=== PATIENT | female | born 1995 | race Caucasian/White ===

== ENCOUNTER 2020-01-04 11:14 | Emergency (ER) | payer SELFPAY ==
[2020-01-04 11:37] VITALS: BP 112/50; PULSE 86; RESP 16; TEMP 36.9; O2SAT 100
--- NOTE | 2020-01-04 12:05 | ED.GENADULT ---
HPI - General Adult General Chief complaint: Upper Respiratory Infection Stated complaint: Vomiting/Cough Time Seen by Provider: 01/04/20 12:05 Source: patient Mode of arrival: ambulatory Limitations: no limitations History of Present Illness HPI narrative: 24-year-old female patient presents to the [facility] with complaints of nausea and vomiting for the past 3-day. Patient states that she started having 100 fever yesterday. Slight cough and little bit of a runny nose. Patient states that her last period was November 20. Patient does currently have a 5-month-old baby at home. Patient states that she did receive a flu shot this year. Related Data Allergies Allergy/AdvReac Type Severity Reaction Status Date / Time acetaminophen Allergy Unknown Rash Verified 01/04/20 11:47 amoxicillin Allergy Unknown Rash Verified 01/04/20 11:47 azithromycin Allergy Unknown Rash Verified 01/04/20 11:47 clavulanic acid Allergy Unknown Rash Verified 01/04/20 11:47 dextromethorphan Allergy Unknown Rash Verified 01/04/20 11:47 doxylamine Allergy Unknown Rash Verified 01/04/20 11:47 ibuprofen Allergy Unknown Other Verified 01/04/20 11:47 metoclopramide Allergy Unknown Rash Verified 01/04/20 11:47 morphine Allergy Unknown Rash Verified 01/04/20 11:47 pseudoephedrine Allergy Unknown Rash Verified 01/04/20 11:47 Review of Systems Review of Systems: Narrative: CONSTITUTIONAL: Positive subjective low-grade fever, denies chills, or sweats. EYES: Denies visual changes, redness, or discharge. ENT: Positive rhinorrhea, congestion, denies sore throat, or otalgia. CARDIOVASCULAR: Denies chest pain, palpitations, or edema. RESPIRATORY: Denies cough or dyspnea. GASTROINTESTINAL: Denies abdominal pain, positive nausea, vomiting, denies diarrhea. GENITOURINARY: Denies dysuria or hematuria. SKIN: Denies rash or itching. MUSCULOSKELETAL: Denies back pain, joint pain, or myalgia. NEUROLOGIC: Denies headache, numbness, or weakness. PSYCHIATRIC: Denies anxiety or depression. PMFSH Comments At the time of my signature I agree with nursing past medical history, surgical, social, and family history. There is no relevant family history pertinent to the presenting complaint. Exam Narrative: Exam Narrative: GENERAL: Well-appearing, well-nourished, and in no acute distress. HEAD: Normocephalic, atraumatic. EYES: PERRLA and EOMI. ENT: Nares clear, no rhinorrhea or epistaxis. Mucous membranes moist. Bilateral TMs are clear with no erythema or foreign bodies in the canal. Posterior pharynx with no erythema, tonsil enlargement, exudates or lesions present. NECK: Supple. No lymphadenopathy CHEST: Clear to auscultation. No respiratory distress. HEART: Regular rate and rhythm. No murmur heard. Normal peripheral pulses. ABDOMEN: Soft, nontender, nondistended, normal active bowel sounds. EXTREMITIES: Normal range of motion. No edema. SKIN: Warm, dry, no rash. NEURO: No focal deficits. Alert and oriented x3. Course Vital Signs Vital signs: Vital Signs Temperature 36.9 C 01/04/20 11:37 Pulse Rate 86 01/04/20 11:37 Respiratory Rate 16 01/04/20 11:37 Blood Pressure 112/50 L 01/04/20 11:37 Pulse Oximetry 100 01/04/20 11:37 Temperature 36.9 C 01/04/20 11:37 Pulse Rate 86 01/04/20 11:37 Respiratory Rate 16 01/04/20 11:37 Blood Pressure 112/50 L 01/04/20 11:37 Pulse Oximetry 100 01/04/20 11:37 Vital signs reviewed. Medical Decision Making Differential Diagnosis Differential Diagnosis: Differential diagnosis: Appendicitis, ovarian torsion, gallbladder disease, ovarian torsion, pancreatitis, lower lobe pneumonia,AAA, AMI or ACS, DKA, diverticulitis. Notify patient that her bedside test today is positive. Discussed with patient that our plan of care is to go ahead and discharge her home with some medications for the nausea vomiting and that she needs to make an appointment with her OB for further evaluation and treatment of the positive
--- NOTE | 2020-01-04 14:50 | PC.NURSE ---
NO UC ORDERED PER COLIN
== END 2020-01-04 12:18 | disposition home or self-care (01) ==
PROVIDERS: Emergency Provider Nurse Practitioner Family
DX: O21.9 Vomiting of pregnancy, unspecified (principal); O99.519 Diseases of the respiratory system complicating pregnancy, unspecified trimester; J06.9 Acute upper respiratory infection, unspecified; O99.619 Diseases of the digestive system complicating pregnancy, unspecified trimester; K21.9 Gastro-esophageal reflux disease without esophagitis; Z3A.00 Weeks of gestation of pregnancy not specified
CPT/HCPCS: 81025; 99213; G0463

== ENCOUNTER 2020-01-19 19:14 | Emergency (ER) | payer SELFPAY ==
[2020-01-19 19:17] VITALS: BP 120/67; PULSE 101; RESP 18; TEMP 37.2; O2SAT 100
--- NOTE | 2020-01-19 19:43 | ED.GENADULT ---
HPI - General Adult General Chief complaint: Eye Problems Stated complaint: Poss [place] [facility] Time Seen by Provider: 01/19/20 19:43 Source: patient and RN notes reviewed Mode of arrival: ambulatory Limitations: no limitations History of Present Illness HPI narrative: 24-year-old 8 weeks and 5 days gestation female presents with complaints of left eye redness, irritation, and itching for 30-40 minutes. Slightly matted. Angeles says her child started with eye redness and irritation initially and now she has developed similar symptoms. No pain. No copious drainage. Exacerbating factors is opening eye. Relieving factors is closing eyes. Suppose to wear glasses but don't wear them. No blurred vision, double vision, sensation of foreign body, or pain of eye with movement. Angeles is 2 months and 5 days . Some parts of this dictation were generated by voice recognition software and may contain typographical and/or grammatical inaccuracies. Related Data Home Medications Medication Instructions Recorded Confirmed Vitamins 01/19/20 Allergies Allergy/AdvReac Type Severity Reaction Status Date / Time acetaminophen Allergy Unknown Rash Verified 01/19/20 19:26 amoxicillin Allergy Unknown Rash Verified 01/19/20 19:26 azithromycin Allergy Unknown Rash Verified 01/19/20 19:26 clavulanic acid Allergy Unknown Rash Verified 01/19/20 19:26 dextromethorphan Allergy Unknown Rash Verified 01/19/20 19:26 doxylamine Allergy Unknown Rash Verified 01/19/20 19:26 ibuprofen Allergy Unknown Other Verified 01/19/20 19:26 metoclopramide Allergy Unknown Rash Verified 01/19/20 19:26 morphine Allergy Unknown Rash Verified 01/19/20 19:26 pseudoephedrine Allergy Unknown Rash Verified 01/19/20 19:26 Review of Systems Review of Systems: Narrative: CONSTITUTIONAL: Denies fever, chills, sweats. EYES: Denies visual changes. Complains of LT eye redness, itching, and irritation. ENT: Complains of rhinorrhea, congestion. Denies sore throat, otalgia. CARDIOVASCULAR: Denies chest pain, palpitations, edema. RESPIRATORY: Denies dyspnea, wheezing, cough. GASTROINTESTINAL: Denies abdominal pain, nausea, vomiting, diarrhea. GENITOURINARY: Denies dysuria, hematuria, abnormal discharge. SKIN: Denies rash or itching. MUSCULOSKELETAL: Denies acute back pain, joint pain, or myalgia. NEUROLOGIC: Denies numbness or focal weakness. PSYCHIATRIC: Denies anxiety or depression. All systems reviewed & are unremarkable except as noted in HPI and below. PMFSH Past Medical History Medical History (Updated 01/27/20 @ 22:14 by LAWANDA Kinney) ADHD (attention deficit hyperactivity disorder) Anxiety Asthma delivery delivered Depression History of gastroesophageal reflux (GERD) Left elbow fracture Surgical History Surgical History (Updated 01/19/20 @ 19:57 by LAWANDA Kinney) H/O section History of elbow surgery For surgery due to fractured that included the growth bone History of endoscopy Family History Family History (Updated 01/19/20 @ 19:58 by LAWANDA Kinney) Father Asthma Grandparent Diabetes mellitus Social History Social History (Updated 01/19/20 @ 19:59 by LAWANDA Kinney) Smoking status: Former smoker Second hand tobacco smoke exposure: Yes Additional smoking assessment comments: Recently stop smoking January 03 due to being Alcohol intake: never Substance use: current Substance use type: marijuana Living arrangements: with family Occupation/Education: occupation Gender identity (if verbalized by the patient): Female Comments At time of signature, agree with nurse past medical, surgical, social, and family history. There is no relevant family history pertinent to the presenting complaint. Exam Narrative: Exam Narrative: GENERAL: This is a well-nourished, well-developed patient, in no apparent distress. HEAD: normocephalic, atraumatic. EYES: PE
[2020-01-19 20:10] VITALS: PULSE 96
== END 2020-01-19 20:10 | disposition home or self-care (01) ==
PROVIDERS: Emergency Provider Nurse Practitioner Family
DX: O99.89 Other specified diseases and conditions complicating pregnancy, childbirth and the puerperium (principal); H10.32 Unspecified acute conjunctivitis, left eye; Z87.891 Personal history of nicotine dependence; Z3A.00 Weeks of gestation of pregnancy not specified
CPT/HCPCS: 99213; G0463

== ENCOUNTER 2022-01-12 10:48 | Emergency (ER) | payer OTHER, SELFPAY ==
[2022-01-12 10:54] VITALS: BP 142/86; PULSE 93; RESP 16; TEMP 37.2; O2SAT 100
--- NOTE | 2022-01-12 11:01 | ED.GENADULT ---
HPI - General Adult General Chief complaint: Nausea/Vomiting/Diarrhea Stated complaint: Vomiting Time Seen by Provider: 01/12/22 11:01 Source: patient Mode of arrival: ambulatory Limitations: no limitations History of Present Illness HPI narrative: 26 yo F presents with c/o N/V, fatigue, indigestion for 2 to 3 days. afebrile. No ABD pain or diarrhea. hx of indigestion. Has not taken OTC antacids. States LMP 12/05. Takes control daily. is concerned she may be . Also stating that she needs work note. pt is well appearing. All systems reviewed and negative except as noted above. Related Data Home Medications Medication Instructions Recorded Confirmed norethindrone-e.estradiol-iron 1 tablet PO DAILY 01/12/22 01/12/22 [Miranda Fe 11/21 (28)] Allergies Allergy/AdvReac Type Severity Reaction Status Date / Time acetaminophen Allergy Unknown Rash Verified 01/12/22 11:01 amoxicillin Allergy Unknown Rash Verified 01/12/22 11:01 azithromycin Allergy Unknown Rash Verified 01/12/22 11:01 clavulanic acid Allergy Unknown Rash Verified 01/12/22 11:01 dextromethorphan Allergy Unknown Rash Verified 01/12/22 11:01 doxylamine Allergy Unknown Rash Verified 01/12/22 11:01 ibuprofen Allergy Unknown Other Verified 01/12/22 11:01 metoclopramide Allergy Unknown Rash Verified 01/12/22 11:01 morphine Allergy Unknown Rash Verified 01/12/22 11:01 pseudoephedrine Allergy Unknown Rash Verified 01/12/22 11:01 Review of Systems Review of Systems: CONSTITUTIONAL: Denies fever, chills, or sweats. Reports fatigue. EYES: Denies visual changes, redness, or discharge. ENT: Denies rhinorrhea, congestion, sore throat, or otalgia. CARDIOVASCULAR: Denies chest pain, palpitations, or edema. RESPIRATORY: Denies cough or dyspnea. GASTROINTESTINAL: Denies abdominal pain. Reports nausea, vomiting. Denies diarrhea. GENITOURINARY: Denies dysuria or hematuria. SKIN: Denies rash or itching. MUSCULOSKELETAL: Denies back pain, joint pain, or myalgia. NEUROLOGIC: Denies headache, numbness, or weakness. PSYCHIATRIC: Denies anxiety or depression. All other systems reviewed are negative, except as documented in HPI. [facility] Past Medical History Medical History (Updated 01/12/22 @ 11:11 by Lachelle Scott NP) ADHD (attention deficit hyperactivity disorder) Anxiety Asthma delivery delivered Depression History of gastroesophageal reflux (GERD) Left elbow fracture Surgical History Surgical History (Updated 01/19/20 @ 19:57 by LAWANDA Kinney) H/O section History of elbow surgery For surgery due to fractured that included the growth bone History of endoscopy Family History Family History (Updated 01/19/20 @ 19:58 by LAWANDA Kinney) Father Asthma Grandparent Diabetes mellitus Social History Social History (Updated 01/19/20 @ 19:59 by LAWANDA Kinney) Smoking status: Former smoker Second hand tobacco smoke exposure: Yes Additional smoking assessment comments: Recently stop smoking January 03 due to being Alcohol intake: never Substance use: current Substance use type: marijuana Gender identity (if verbalized by the patient): Female Comments At time of signature, agree with nursing past medical, surgical, social and family history. There is no relevant family history pertinent to the presenting complaint. Exam Narrative: GENERAL: This is a well-nourished, well-developed patient, in no apparent distress. HEAD: normocephalic, atraumatic. EYES: PERRL. Sclera clear/white. Vision is grossly intact. EARS: External ears normal, auditory canals clear and without drainage, TMs normal without perforation. Hearing grossly intact. NOSE: External nose normal with no obvious nasal discharge, nares without redness, no rhinorrhea. THROAT: Mucous membranes moist, posterior pharynx clear. NECK: Neck supple, non-tender without lymphadenopathy, masses or thyromegaly. CARDIOVASCULAR: Regular ra
[2022-01-12 11:02] VITALS: BP 142/86; PULSE 93; RESP 16; TEMP 37.2; O2SAT 100
== END 2022-01-12 11:14 | disposition home or self-care (01) ==
PROVIDERS: Emergency Provider Nurse Practitioner Family
DX: A08.4 Viral intestinal infection, unspecified (principal); Z87.891 Personal history of nicotine dependence; J45.909 Unspecified asthma, uncomplicated; K21.9 Gastro-esophageal reflux disease without esophagitis
CPT/HCPCS: 81025; 99213; G0463

== ENCOUNTER 2022-03-11 10:52 | Emergency (ER) | payer OTHER, SELFPAY ==
[2022-03-11 11:11] VITALS: BP 120/79; PULSE 92; RESP 16; TEMP 36.3; O2SAT 99
--- NOTE | 2022-03-11 11:15 | ED.URI ---
HPI - URI/Sore Throat General Chief Complaint: Upper Respiratory Infection Stated Complaint: Sore Throat Time Seen by Provider: 03/11/22 11:15 Source: patient, RN notes reviewed and old records reviewed Mode of arrival: ambulatory Limitations: no limitations History of Present Illness HPI Narrative: 26 year old female presents to [facility] with complaints of sore throat, congestion, and cough which started last evening. Patient states family member also is ill with same symptoms. Patient has not taken any medications for her discomfort. Patient denies any acute shortness of breath or any noted wheezing does have a history of asthma. Patient reports it does hurt to swallow rates her pain 5/10 described as constant soreness. MD elicited complaint: cough, sore throat and other (congestion) Pertinent past history: asthma Pain scale (0-10): 5 Exacerbating factors: swallowing Context: sick contacts Associated symptoms: sore throat, cough and other (congestion) Treatments prior to arrival: none Related Data Home Medications Medication Instructions Recorded Confirmed norethindrone-e.estradiol-iron 1 tablet PO DAILY 01/12/22 03/11/22 [Miranda Fe 11/21 (28)] Allergies Allergy/AdvReac Type Severity Reaction Status Date / Time acetaminophen Allergy Unknown Rash Verified 03/11/22 11:22 azithromycin Allergy Unknown Rash Verified 03/11/22 11:22 clavulanic acid Allergy Unknown Rash Verified 03/11/22 11:22 dextromethorphan Allergy Unknown Rash Verified 03/11/22 11:22 doxylamine Allergy Unknown Rash Verified 03/11/22 11:22 ibuprofen Allergy Unknown Other Verified 03/11/22 11:22 metoclopramide Allergy Unknown Rash Verified 03/11/22 11:22 morphine Allergy Unknown Rash Verified 03/11/22 11:22 pseudoephedrine Allergy Unknown Rash Verified 03/11/22 11:22 Review of Systems Review of Systems: CONSTITUTIONAL: Denies fever, chills, or sweats. EYES: Denies visual changes, redness, or discharge. ENT: Denies rhinorrhea, congestion, positive for sore throat, no otalgia. CARDIOVASCULAR: Denies chest pain, palpitations, or edema. RESPIRATORY: Positive for cough and chest congestion denies dyspnea. GASTROINTESTINAL: Denies abdominal pain, nausea, vomiting, or diarrhea. GENITOURINARY: Denies dysuria or hematuria. SKIN: Denies rash or itching. MUSCULOSKELETAL: Denies back pain, joint pain, or myalgia. NEUROLOGIC: Denies headache, numbness, or weakness. PSYCHIATRIC: Positive for anxiety or depression. All systems reviewed & are unremarkable except as noted in HPI and below PMFSH Past Medical History Medical History ADHD (attention deficit hyperactivity disorder) Anxiety Asthma delivery delivered Depression History of gastroesophageal reflux (GERD) Left elbow fracture Surgical History Surgical History H/O section History of elbow surgery For surgery due to fractured that included the growth bone History of endoscopy Family History Family History Father Asthma Grandparent Diabetes mellitus Social History Social History Smoking status: Former smoker Second hand tobacco smoke exposure: Yes Additional smoking assessment comments: Recently stop smoking January 03 due to being Alcohol intake: never Substance use: current Substance use type: marijuana Gender identity (if verbalized by the patient): Female Comments At time of signature, agree with nursing past medical, surgical, social and family history. There is no relevant family history pertinent to the presenting complaint Exam Narrative: GENERAL: Well-appearing, well-nourished, and in no acute distress. HEAD: Normocephalic, atraumatic. EYES: PERRLA and EOMI. ENT: Nares clear, no rhinorrhea or epistaxis. Mucous membranes moist.T
== END 2022-03-11 11:55 | disposition home or self-care (01) ==
PROVIDERS: Emergency Provider Registered Nurse
DX: J02.0 Streptococcal pharyngitis (principal); Z87.891 Personal history of nicotine dependence
CPT/HCPCS: 87880; 99213; G0463

== ENCOUNTER 2022-08-04 18:56 | Emergency (ER) | payer OTHER, SELFPAY ==
[2022-08-04 19:00] VITALS: BP 116/99; PULSE 93; RESP 16; TEMP 36.9; O2SAT 100
[2022-08-04 19:07] VITALS: BP 116/99; PULSE 93; RESP 16; TEMP 36.9; O2SAT 100
--- NOTE | 2022-08-04 19:07 | ED.GENADULT ---
HPI - General Adult General Chief complaint: Ear Stated complaint: Nose Injury Time Seen by Provider: 08/04/22 19:07 Source: patient Mode of arrival: ambulatory Limitations: no limitations History of Present Illness HPI narrative: 26-year-old female presented for complaint of nose pain after her 3-year-old struck her in the nose with his head about 1 hour prior to arrival. She states it continued to throb and she could not turn her head without feeling a headache. She did not take anything for pain stating she could not find anything to take. She did not apply ice. She endorses a small trickle of blood that had resolved on its own. Rates pain 8 out of 10. She denies dizziness, nausea, vomiting. Related Data Home Medications Medication Instructions Recorded Confirmed norethindrone 1 mg-ethinyl 1 tablet PO DAILY 01/12/22 08/04/22 estradiol 20 mcg (21)-iron 75 mg (7) tablet (Miranda Fe 11/21 (28)) Allergies Allergy/AdvReac Type Severity Reaction Status Date / Time acetaminophen Allergy Unknown Rash Verified 08/04/22 19:06 azithromycin Allergy Unknown Rash Verified 08/04/22 19:06 clavulanic acid Allergy Unknown Rash Verified 08/04/22 19:06 dextromethorphan Allergy Unknown Rash Verified 08/04/22 19:06 doxylamine Allergy Unknown Rash Verified 08/04/22 19:06 ibuprofen Allergy Unknown Other Verified 08/04/22 19:06 metoclopramide Allergy Unknown Rash Verified 08/04/22 19:06 morphine Allergy Unknown Rash Verified 08/04/22 19:06 pseudoephedrine Allergy Unknown Rash Verified 08/04/22 19:06 Review of Systems Review of Systems: CONSTITUTIONAL: Denies malaise, chills, or fever. EYES: Denies visual changes, redness, or discharge. ENT: Denies rhinorrhea, congestion, epistaxis CARDIOVASCULAR: Denies chest pain, palpitations, or edema. RESPIRATORY: Denies cough or dyspnea. GASTROINTESTINAL: Denies abdominal pain, nausea, vomiting, diarrhea SKIN: Denies rash or itching. MUSCULOSKELETAL: Denies myalgia. All systems reviewed & are unremarkable except as noted in HPI and below PMFSH Past Medical History Medical History ADHD (attention deficit hyperactivity disorder) Anxiety Asthma delivery delivered Depression History of gastroesophageal reflux (GERD) Left elbow fracture Surgical History Surgical History H/O section History of elbow surgery For surgery due to fractured that included the growth bone History of endoscopy Family History Family History Father Asthma Grandparent Diabetes mellitus Social History Social History Smoking status: Former smoker Second hand tobacco smoke exposure: Yes Additional smoking assessment comments: Recently stop smoking January 03 due to being Alcohol intake: never Substance use: current Substance use type: marijuana Gender identity (if verbalized by the patient): Female Comments At time of signature, agree with nursing past medical, surgical, social and family history. There is no relevant family history pertinent to the presenting complaint Exam Narrative: GENERAL: Well-appearing HEAD: Normocephalic EYES: PERRLA, conjunctivae clear ENT: Nares clear, no blood. approx 4mm diameter bruising to left nasal bridge; Mucous membranes moist. TMs pearly shaw with dull light reflex bilaterally; no tragal tenderness. NECK: Supple. No lymphadenopathy CHEST: Clear to auscultation, breath sounds equal. HEART: Regular rate and rhythm. No murmur heard. SKIN: Warm, dry, no rash. NEURO: Alert and oriented x3. Course Course Emergency Course: Patient is aware of diagnosis, understands and agrees to treatment plan. Anticipatory guidance given. Patient agrees to follow-up as directed and is aware of reasons to seek care at the emerg
== END 2022-08-04 19:17 | disposition home or self-care (01) ==
PROVIDERS: Emergency Provider Nurse Practitioner Family
DX: S00.33XA Contusion of nose, initial encounter (principal); W51.XXXA Accidental striking against or bumped into by another person, initial encounter; J45.909 Unspecified asthma, uncomplicated; K21.9 Gastro-esophageal reflux disease without esophagitis
CPT/HCPCS: 99212; G0463

== ENCOUNTER 2022-09-22 12:38 | Emergency (ER) | payer OTHER, SELFPAY ==
[2022-09-22 12:43] VITALS: BP 118/66; PULSE 83; RESP 16; TEMP 36.7; O2SAT 100
--- NOTE | 2022-09-22 13:29 | ED.URI ---
HPI - URI/Sore Throat General Chief Complaint: Upper Respiratory Infection Stated Complaint: fever sore throat cough Time Seen by Provider: 09/22/22 13:30 Source: patient and RN notes reviewed Mode of arrival: ambulatory Limitations: no limitations History of Present Illness HPI Narrative: 27-year-old female presents concern for 3 day history of sore throat, sinus congestion, body aches, fever. Reports she has been taking Tylenol. Reports her kids had flu last week. MD elicited complaint: sore throat Related Data Home Medications Medication Instructions Recorded Confirmed norethindrone 1 mg-ethinyl 1 tablet PO DAILY 01/12/22 08/04/22 estradiol 20 mcg (21)-iron 75 mg (7) tablet (Miranda Fe 11/21 (28)) Allergies Allergy/AdvReac Type Severity Reaction Status Date / Time acetaminophen Allergy Unknown Rash Verified 08/04/22 19:06 azithromycin Allergy Unknown Rash Verified 08/04/22 19:06 clavulanic acid Allergy Unknown Rash Verified 08/04/22 19:06 dextromethorphan Allergy Unknown Rash Verified 08/04/22 19:06 doxylamine Allergy Unknown Rash Verified 08/04/22 19:06 ibuprofen Allergy Unknown Other Verified 08/04/22 19:06 metoclopramide Allergy Unknown Rash Verified 08/04/22 19:06 morphine Allergy Unknown Rash Verified 08/04/22 19:06 pseudoephedrine Allergy Unknown Rash Verified 08/04/22 19:06 Review of Systems Review of Systems: CONSTITUTIONAL: Reports malaise, fever. EYES: Denies visual changes, redness, or discharge. ENT: Reports rhinorrhea, congestion, sore throat. Denies sinus pain, otalgia CARDIOVASCULAR: Denies chest pain, palpitations, or edema. RESPIRATORY: Reports cough. Denies dyspnea. GASTROINTESTINAL: Denies abdominal pain, nausea, vomiting, diarrhea SKIN: Denies rash or itching. MUSCULOSKELETAL: Reports myalgia. NEUROLOGIC: Denies headache. All systems reviewed & are unremarkable except as noted in HPI and below PMFSH Past Medical History Medical History ADHD (attention deficit hyperactivity disorder) Anxiety Asthma delivery delivered Depression History of gastroesophageal reflux (GERD) Left elbow fracture Surgical History Surgical History H/O section History of elbow surgery For surgery due to fractured that included the growth bone History of endoscopy Family History Family History Father Asthma Grandparent Diabetes mellitus Social History Social History Smoking status: Former smoker Second hand tobacco smoke exposure: Yes Additional smoking assessment comments: Recently stop smoking January 03 due to being Alcohol intake: never Substance use: current Substance use type: marijuana Gender identity (if verbalized by the patient): Female Comments At time of signature, agree with nursing past medical, surgical, social and family history. There is no relevant family history pertinent to the presenting complaint Exam Narrative: GENERAL: Well-appearing, well-nourished, and in no acute distress. HEAD: Normocephalic EYES: PERRLA, conjunctivae clear ENT: Nares clear, turbinates edematous and erythematous, clear discharge. Mucous membranes moist. TM pearly shaw with dull light reflex bilaterally; no tragal tenderness. Oropharynx not erythematous without lesions. Tonsils not enlarged and without exudate, no drooling, no hoarseness, no trismus, uvula midline. NECK: Supple. No lymphadenopathy CHEST: Clear to auscultation, breath sounds equal. No wheezing, rhonchi, rales, or stridor. No respiratory distress, speaks in full sentences. HEART: Regular rate and rhythm. No murmur heard. SKIN: Warm, dry, no rash. NEURO: Alert and oriented x3. PSYCH: Normal mood and affect Course Course Emergency Course: Patient is aware of diagnosis, un
== END 2022-09-22 14:13 | disposition home or self-care (01) ==
PROVIDERS: Emergency Provider Nurse Practitioner
DX: J11.1 Influenza due to unidentified influenza virus with other respiratory manifestations (principal); J45.909 Unspecified asthma, uncomplicated; K21.9 Gastro-esophageal reflux disease without esophagitis
CPT/HCPCS: 87081; 87804; 87880; 99213; G0463

== ENCOUNTER 2022-12-09 15:29 | Emergency (ER) | payer OTHER, SELFPAY ==
[2022-12-09 15:44] VITALS: BP 123/66; PULSE 83; RESP 16; TEMP 36.6; O2SAT 100
--- NOTE | 2022-12-09 16:44 | ED.URI ---
HPI - URI/Sore Throat General Chief Complaint: Upper Respiratory Infection Stated Complaint: Sore Throat Time Seen by Provider: 12/09/22 16:32 Source: patient, RN notes reviewed and old records reviewed Mode of arrival: ambulatory Limitations: no limitations History of Present Illness HPI Narrative: 27 year old female who presents to [facility] care with complaints of runny nose, cough, sore throat and some sinus drainage since Thursday.Patient reports that she had temperature of 99F at work today and she was sent home from work.Patient reports that she has not taken any OTC medication for her symptoms. MD elicited complaint: cough, rhinorrhea and nasal congestion Onset (ago): day(s) (day 3 of symptoms) Pain scale (0-10): 2 Description of mucous: clear Able to tolerate fluids by mouth: Yes Treatments prior to arrival: none Related Data Allergies Allergy/AdvReac Type Severity Reaction Status Date / Time acetaminophen Allergy Unknown Rash Verified 08/04/22 19:06 azithromycin Allergy Unknown Rash Verified 08/04/22 19:06 clavulanic acid Allergy Unknown Rash Verified 08/04/22 19:06 dextromethorphan Allergy Unknown Rash Verified 08/04/22 19:06 doxylamine Allergy Unknown Rash Verified 08/04/22 19:06 ibuprofen Allergy Unknown Other Verified 08/04/22 19:06 metoclopramide Allergy Unknown Rash Verified 08/04/22 19:06 morphine Allergy Unknown Rash Verified 08/04/22 19:06 pseudoephedrine Allergy Unknown Rash Verified 08/04/22 19:06 Review of Systems Review of Systems: CONSTITUTIONAL: Reports malaise, chills, sweats, or fever. EYES: Denies visual changes, redness, or discharge. ENT: Reports rhinorrhea, congestion, sinus pain, no otalgia positive sore throat. CARDIOVASCULAR: Denies chest pain, palpitations, or edema. RESPIRATORY: Reports cough.? Denies dyspnea. GASTROINTESTINAL: Denies abdominal pain, nausea, vomiting, diarrhea SKIN: Denies rash or itching. MUSCULOSKELETAL: Denies myalgia. NEUROLOGIC: Denies headache. All systems reviewed & are unremarkable except as noted in HPI and below PMFSH Past Medical History Medical History ADHD (attention deficit hyperactivity disorder) Anxiety Asthma delivery delivered Depression History of gastroesophageal reflux (GERD) Left elbow fracture Surgical History Surgical History H/O section History of elbow surgery For surgery due to fractured that included the growth bone History of endoscopy Family History Family History Father Asthma Grandparent Diabetes mellitus Social History Social History Smoking status: Former smoker Second hand tobacco smoke exposure: Yes Additional smoking assessment comments: Recently stop smoking January 03 due to being Alcohol intake: never Substance use: current Substance use type: marijuana Living arrangements: with family Occupation/Education: occupation Gender identity (if verbalized by the patient): Female Comments At time of signature, agree with nursing past medical, surgical, social and family history. There is no relevant family history pertinent to the presenting complaint Exam Narrative: GENERAL: Well-appearing, well-nourished, and in no acute distress. HEAD: Normocephalic EYES: PERRLA, conjunctivae clear ENT: Nares clear, turbinates edematous and erythematous, clear discharge. Mucous membranes moist. TM pearly shaw with dull light reflex bilaterally; no tragal tenderness. Oropharynx erythematous without lesions. Tonsils red minimally enlarged and without exudate, no drooling, no hoarseness, no trismus, uvula midline.some post nasal drainage NECK: Supple. No lymphadenopathy CHEST: Clear to auscultation, breath sounds equal. No wheezing, rhonchi, rales, or stridor. N
== END 2022-12-09 17:05 | disposition home or self-care (01) ==
PROVIDERS: Emergency Provider Registered Nurse; PCP Family Medicine
DX: J06.9 Acute upper respiratory infection, unspecified (principal); Z87.891 Personal history of nicotine dependence; F12.90 Cannabis use, unspecified, uncomplicated; J45.909 Unspecified asthma, uncomplicated; K21.9 Gastro-esophageal reflux disease without esophagitis
CPT/HCPCS: 87081; 87880; 99213; G0463

== ENCOUNTER 2024-03-24 13:12 | Emergency (ER) | payer OTHER, SELFPAY ==
[2024-03-24 13:21] VITALS: BP 119/57; PULSE 106; RESP 16; TEMP 37.4; O2SAT 99
--- NOTE | 2024-03-24 13:47 | ED.DENTAL ---
HPI - Dental/Oral General Chief complaint: Dental/Oral Stated complaint: tooth pain Time Seen by Provider: 03/24/24 13:35 Source: patient, RN notes reviewed and old records reviewed Mode of arrival: ambulatory Limitations: no limitations History of Present Illness HPI Narrative: 28 year old female who presents to [facility] with complaints of dental pain to her left lower broken molar for the past 3 days with face swelling noted. Patient reports that she has been taking Tylenol for her pain and using salt water rinses for the pain. Patient denies any difficulty with her breathing or with any difficulty swallowing. Patient reports that she has appointment at dental school next Thursday. MD Complaint: tooth pain Location: Tooth # (19) Onset (ago): day(s) (3) Duration: constant Severity scale (1-10): 6 Treatment prior to arrival: other (Tylenol salt water rinses) Related Data Allergies Allergy/AdvReac Type Severity Reaction Status Date / Time acetaminophen Allergy Unknown Rash Verified 08/04/22 19:06 azithromycin Allergy Unknown Rash Verified 08/04/22 19:06 clavulanic acid Allergy Unknown Rash Verified 08/04/22 19:06 dextromethorphan Allergy Unknown Rash Verified 08/04/22 19:06 doxylamine Allergy Unknown Rash Verified 08/04/22 19:06 ibuprofen Allergy Unknown Other Verified 08/04/22 19:06 metoclopramide Allergy Unknown Rash Verified 08/04/22 19:06 morphine Allergy Unknown Rash Verified 08/04/22 19:06 pseudoephedrine Allergy Unknown Rash Verified 08/04/22 19:06 Review of Systems Review of Systems: CONSTITUTIONAL: Denies fever, chills, or sweats. ENT: Denies rhinorrhea, congestion, sore throat, or otalgia. Reports dental pain to 3rd left lower molar#19 with some facial swelling CARDIOVASCULAR: Denies chest pain, palpitations, or edema. RESPIRATORY: Denies cough or dyspnea. SKIN: Denies rash or itching. MUSCULOSKELETAL: Denies myalgia. NEUROLOGIC: Denies headache All systems reviewed & are unremarkable except as noted in HPI and below PMFSH Past Medical History Medical History ADHD (attention deficit hyperactivity disorder) Anxiety Asthma delivery delivered Depression History of gastroesophageal reflux (GERD) Left elbow fracture Surgical History Surgical History H/O section History of elbow surgery For surgery due to fractured that included the growth bone History of endoscopy Family History Family History Father Asthma Grandparent Diabetes mellitus Social History Social History (Updated 03/25/24 @ 13:59 by Mary Sandoval NP) Smoking status: Current every day smoker Tobacco type: cigarettes Second hand tobacco smoke exposure: Yes Alcohol intake: never Substance use: current Substance use type: marijuana Living arrangements: with family Occupation/Education: occupation Gender identity (if verbalized by the patient): Female Comments At time of signature, agree with nursing past medical, surgical, social and family history. There is no relevant family history pertinent to the presenting complaint Exam Narrative: GENERAL: Well-appearing, well-nourished, and in no acute distress. HEAD: Normocephalic, atraumatic. EYES: PERRLA and EOMI. ENT: Nares clear, no rhinorrhea or epistaxis. Mucous membranes moist. Missing teeth, broken teeth, caries noted with #19 tooth broken and redness and swelling of surrounding gum with facial swelling, no trismus or Donald angina. Positive history of dental problems NECK: Supple.no lymphadenopathy CHEST: Clear to auscultation. No respiratory distress. SAO2 99% on room air HEART: Regular rate and rhythm. No murmur heard. Normal peripheral pulses. SKIN: Warm, dry, no rash. NEURO: No focal deficits. Alert and oriented x3. Course Course Emergency Course: Patient is aware
== END 2024-03-24 14:04 | disposition home or self-care (01) ==
PROVIDERS: Emergency Provider Registered Nurse
DX: K04.7 Periapical abscess without sinus (principal); F17.210 Nicotine dependence, cigarettes, uncomplicated; F12.90 Cannabis use, unspecified, uncomplicated; J45.909 Unspecified asthma, uncomplicated; K21.9 Gastro-esophageal reflux disease without esophagitis
CPT/HCPCS: 99213; G0463

== ENCOUNTER 2024-05-12 14:38 | Emergency (ER) | payer OTHER, SELFPAY ==
[2024-05-12 14:43] VITALS: BP 122/68; PULSE 99; RESP 16; TEMP 37.1; O2SAT 99
[2024-05-12 14:47] VITALS: BP 122/68; PULSE 99; RESP 16; TEMP 37.1; O2SAT 99
--- NOTE | 2024-05-12 15:23 | ED.DENTAL ---
HPI - Dental/Oral General Chief complaint: Dental/Oral Stated complaint: tooth pain Time Seen by Provider: 05/12/24 15:14 Source: patient and RN notes reviewed Mode of arrival: ambulatory Limitations: no limitations History of Present Illness HPI Narrative: Patient presents today complaining of pain to her left lower tooth x3 days with swelling to the left lower jaw line since yesterday. She was seen for pain to the same tooth on 03/24/2024 and put on Penicillin-Vk, which did take care of her symptoms at that time. She has been taking Tylenol and using prescription mouthwash which has provided some relief. She is waiting to get put on her 's insurance before she can go to the dentist, which may be a few more months. Related Data Allergies Allergy/AdvReac Type Severity Reaction Status Date / Time acetaminophen Allergy Unknown Rash Verified 08/04/22 19:06 azithromycin Allergy Unknown Rash Verified 08/04/22 19:06 clavulanic acid Allergy Unknown Rash Verified 08/04/22 19:06 dextromethorphan Allergy Unknown Rash Verified 08/04/22 19:06 doxylamine Allergy Unknown Rash Verified 08/04/22 19:06 ibuprofen Allergy Unknown Other Verified 08/04/22 19:06 metoclopramide Allergy Unknown Rash Verified 08/04/22 19:06 morphine Allergy Unknown Rash Verified 08/04/22 19:06 pseudoephedrine Allergy Unknown Rash Verified 08/04/22 19:06 Review of Systems Review of Systems: CONSTITUTIONAL: Denies body aches, fever, chills, or sweats. EYES: Denies visual changes, redness, or discharge. ENT: Denies rhinorrhea, congestion, sore throat, or otalgia.+ tooth pain and jaw swelling CARDIOVASCULAR: Denies chest pain, palpitations, or edema. RESPIRATORY: Denies cough or dyspnea. GASTROINTESTINAL: Denies abdominal pain, nausea, vomiting, or diarrhea. GENITOURINARY: Denies dysuria or hematuria. SKIN: Denies rash, itching, or wounds. MUSCULOSKELETAL: Denies back pain, joint pain, or myalgia. NEUROLOGIC: Denies headache, numbness, tingling, or weakness. PSYCH: Denies depression or anxiety. [facility] Past Medical History Medical History ADHD (attention deficit hyperactivity disorder) Anxiety Asthma delivery delivered Depression History of gastroesophageal reflux (GERD) Left elbow fracture Surgical History Surgical History H/O section History of elbow surgery For surgery due to fractured that included the growth bone History of endoscopy Family History Family History Father Asthma Grandparent Diabetes mellitus Social History Social History Smoking status: Current every day smoker Tobacco type: cigarettes Second hand tobacco smoke exposure: Yes Alcohol intake: never Substance use: current Substance use type: marijuana Living arrangements: with family Occupation/Education: occupation Gender identity (if verbalized by the patient): Female Comments At time of signature, I have reviewed and agree with nursing past medical, surgical, social and family history unless otherwise noted. Please see nursing chart for further information. There is no relevant family history pertinent to the presenting complaint Exam Narrative: GENERAL: Well-appearing, well-nourished, and in no acute distress. HEAD: Normocephalic, atraumatic. EYES: EOMI. No redness or drainage. Conjunctivae normal. ENT: Mucous membranes pink and moist. Nares clear. No rhinorrhea. Poor dentition. Patient is localizing her current pain to tooth number 20 which has a large cavity. Tooth number 21 is broken off the gumline. She has a large amount of white material to the anterior lower gumline. Mild swelling to the left lower jaw line. No trismus NECK: Normal AROM. Supple. No lymphadenopathy. CHEST: No r
== END 2024-05-12 15:31 | disposition home or self-care (01) ==
PROVIDERS: Emergency Provider Nurse Practitioner
DX: K04.7 Periapical abscess without sinus (principal); F17.210 Nicotine dependence, cigarettes, uncomplicated; F12.90 Cannabis use, unspecified, uncomplicated; J45.909 Unspecified asthma, uncomplicated; K21.9 Gastro-esophageal reflux disease without esophagitis
CPT/HCPCS: 99213; G0463

== ENCOUNTER 2024-07-02 10:56 | Emergency (ER) | payer OTHER, SELFPAY ==
--- NOTE | 2024-07-02 11:01 | ED.GENADULT ---
HPI - General Adult General Chief complaint: Dental/Oral Stated complaint: Toothache Time Seen by Provider: 07/02/24 11:01 Source: patient, RN notes reviewed and old records reviewed Mode of arrival: ambulatory Limitations: no limitations History of Present Illness HPI narrative: 28-year-old [facility] to [facility] for complaint of left lower molar pain for 3 days and left sided facial swelling for 1 day. patient currently rating pain 7/10. Patient states that she does not currently have a dentist. Patient has attempted to treat at home with ice and Tylenol. Patient denies fever, nausea, body aches, chills, headache, dizziness, difficulty swallowing, shortness of breath. Patient able to tolerate fluids by mouth. Patient sitting comfortably in exam room. Respirations even and nonlabored. Patient in no acute distress. Related Data Allergies Allergy/AdvReac Type Severity Reaction Status Date / Time acetaminophen Allergy Unknown Rash Verified 08/04/22 19:06 azithromycin Allergy Unknown Rash Verified 08/04/22 19:06 clavulanic acid Allergy Unknown Rash Verified 08/04/22 19:06 dextromethorphan Allergy Unknown Rash Verified 08/04/22 19:06 doxylamine Allergy Unknown Rash Verified 08/04/22 19:06 ibuprofen Allergy Unknown Other Verified 08/04/22 19:06 metoclopramide Allergy Unknown Rash Verified 08/04/22 19:06 morphine Allergy Unknown Rash Verified 08/04/22 19:06 pseudoephedrine Allergy Unknown Rash Verified 08/04/22 19:06 Review of Systems Review of Systems: All systems reviewed & are unremarkable except as noted in HPI and below Constitutional: Constitutional: Reports no additional constitutional complaints Eyes: Eyes: Reports no additional eye complaints ENT: Reports as per HPI, Denies change in voice, Reports dental pain, Denies hoarseness, Denies sore throat, Denies throat swelling and Denies tongue swelling Cardiovascular: Cardiovascular: Reports no additional cardiovascular complaints, Denies chest pain and Denies dyspnea Respiratory: Respiratory: Reports no additional respiratory complaints, Denies cough and Denies dyspnea Musculoskeletal: Musculoskeletal: Reports no additional musculoskeletal complaints Neurologic: Reports system reviewed and no additional complaints, except as documented Psychiatric: Psychiatric: Reports no additional psychiatric complaints PMFSH Past Medical History Medical History ADHD (attention deficit hyperactivity disorder) Anxiety Asthma delivery delivered Depression History of gastroesophageal reflux (GERD) Left elbow fracture Surgical History Surgical History H/O section History of elbow surgery For surgery due to fractured that included the growth bone History of endoscopy Family History Family History Father Asthma Grandparent Diabetes mellitus Social History Social History Smoking status: Current every day smoker Tobacco type: cigarettes Second hand tobacco smoke exposure: Yes Alcohol intake: never Substance use: current Substance use type: marijuana Living arrangements: with family Occupation/Education: occupation Gender identity (if verbalized by the patient): Female Comments At the time of my signature, I reviewed and agree with the nursing past medical, surgical, social, and family history. There is no relevant family history pertinent to the patient complaint. Exam Const: General: cooperative, no acute distress, alert, ill appearing acutely, tired appearing, uncomfortable and well nourished Nutritional Appearance: well nourished Orientation/consciousness: patient oriented x3 Limitations: no limitations HENMT: Head: normal to inspection Ears: external ears normal Face/Nose/Sinus: Normal
[2024-07-02 11:08] VITALS: BP 128/73; PULSE 110; RESP 16; TEMP 37; O2SAT 100
== END 2024-07-02 11:31 | disposition home or self-care (01) ==
PROVIDERS: Emergency Provider Nurse Practitioner Family
DX: K02.9 Dental caries, unspecified (principal); K04.7 Periapical abscess without sinus; S02.5XXA Fracture of tooth (traumatic), initial encounter for closed fracture; X58.XXXA Exposure to other specified factors, initial encounter; F17.210 Nicotine dependence, cigarettes, uncomplicated; F12.90 Cannabis use, unspecified, uncomplicated; J45.909 Unspecified asthma, uncomplicated; K21.9 Gastro-esophageal reflux disease without esophagitis
CPT/HCPCS: 99213; G0463

== ENCOUNTER 2024-08-05 12:33 | Emergency (ER) | payer OTHER, SELFPAY ==
[2024-08-05 12:43] VITALS: BP 110/68; PULSE 92; RESP 18; TEMP 36.6; O2SAT 99
--- NOTE | 2024-08-05 13:19 | ED.URI ---
HPI - URI/Sore Throat General Chief Complaint: Upper Respiratory Infection Stated Complaint: Fever/Cough/Sore Throat/Body Aches Time Seen by Provider: 08/05/24 13:19 Source: patient and RN notes reviewed Mode of arrival: ambulatory Limitations: no limitations History of Present Illness HPI Narrative: 28-year-old female presented for complaint of headache, body aches, sinus pressure/congestion, cough, fever/chills. onset 2 days. Not taking anything for symptoms. Denies known sick contacts. Denies sob, wheezing, n/v/d. MD elicited complaint: cough Related Data Home Medications Medication Instructions Recorded Confirmed No Home Medications 08/05/24 08/05/24 Allergies Allergy/AdvReac Type Severity Reaction Status Date / Time acetaminophen Allergy Unknown Rash Verified 08/04/22 19:06 azithromycin Allergy Unknown Rash Verified 08/04/22 19:06 clavulanic acid Allergy Unknown Rash Verified 08/04/22 19:06 dextromethorphan Allergy Unknown Rash Verified 08/04/22 19:06 doxylamine Allergy Unknown Rash Verified 08/04/22 19:06 ibuprofen Allergy Unknown Other Verified 08/04/22 19:06 metoclopramide Allergy Unknown Rash Verified 08/04/22 19:06 morphine Allergy Unknown Rash Verified 08/04/22 19:06 pseudoephedrine Allergy Unknown Rash Verified 08/04/22 19:06 Review of Systems Review of Systems: CONSTITUTIONAL: Endorses malaise, chills, sweats, fever EYES: Denies visual changes, redness, or discharge ENT: Reports rhinorrhea, congestion, sinus pain, otalgia, sore throat CARDIOVASCULAR: Denies chest pain, palpitations, edema RESPIRATORY: Reports cough, post nasal drainage. Denies dyspnea GASTROINTESTINAL: Denies abdominal pain, nausea, vomiting, diarrhea SKIN: Denies rash or itching MUSCULOSKELETAL: Endorses myalgia PMFSH Past Medical History Medical History ADHD (attention deficit hyperactivity disorder) Anxiety Asthma delivery delivered Depression History of gastroesophageal reflux (GERD) Left elbow fracture Surgical History Surgical History H/O section History of elbow surgery For surgery due to fractured that included the growth bone History of endoscopy Family History Family History Father Asthma Grandparent Diabetes mellitus Social History Social History Smoking status: Current every day smoker Tobacco type: cigarettes Second hand tobacco smoke exposure: Yes Alcohol intake: never Substance use: current Substance use type: marijuana Living arrangements: with family Occupation/Education: occupation Gender identity (if verbalized by the patient): Female Exam Narrative: GENERAL: well-appearing EYES: PERRLA, conjunctivae clear ENT: Mucous membranes moist. TM pearly shaw with dull light reflex bilaterally; no tragal tenderness. Oropharynx Mild erythematous without lesions or exudate, no drooling, no hoarseness, no trismus, uvula midline. No tripod positioning, muffled voice, soft palate or pharyngeal wall bulging NECK: Supple. No lymphadenopathy CHEST: Clear to auscultation, breath sounds equal. No wheezing, rhonchi, rales, or stridor. No respiratory distress, speaks in full sentences. HEART: Regular rate and rhythm. No murmur heard. SKIN: Warm, dry, no rash. NEURO: Alert and oriented x3. PSYCH: Normal mood and affect Course Course Emergency Course: Patient is aware of diagnosis, understands and agrees to treatment plan. Anticipatory guidance given. Patient agrees to follow-up as directed and is aware of reasons to seek care at the emergency department. Portions of this record may have been created with voice recognition software Level of Care: Express Care Visit Vital Signs Vital signs: Vital Signs Temperature 97.8 F 08/05/24 12:
[2024-08-05 13:32] LABS: EDCOVIDSCREEN Negative (Negative)
[2024-08-05 13:33] LABS: EDINFLUASCREEN Negative (Negative); EDINFLUBSCREEN Negative (Negative); EDSTREPNEGPOS1 Negative (Negative)
== END 2024-08-05 13:30 | disposition home or self-care (01) ==
PROVIDERS: Emergency Provider Nurse Practitioner Family
DX: B34.9 Viral infection, unspecified (principal); Z20.822 Contact with and (suspected) exposure to COVID-19; F17.210 Nicotine dependence, cigarettes, uncomplicated; J45.909 Unspecified asthma, uncomplicated; K21.9 Gastro-esophageal reflux disease without esophagitis
CPT/HCPCS: 87081; 87426; 87804; 87880; 99213; G0463

== ENCOUNTER 2025-08-06 09:49 | Emergency (ER) | payer OTHER, SELFPAY ==
[2025-08-06 09:53] VITALS: BP 108/76; PULSE 68; RESP 16; TEMP 36.6; O2SAT 100
--- NOTE | 2025-08-06 10:19 | ED_ITS ---
HPI - Dental/Oral General Chief complaint: Dental/Oral Stated complaint: Facial Swelling/Mouth Sore Time Seen by Provider: 08/06/25 10:10 Source: patient and RN notes reviewed Mode of arrival: ambulatory Limitations: no limitations History of Present Illness HPI Narrative: 29-year-old female presents [facility] complaining of bumps on her comes in dental pain for the last 2 days. Patient has chronic dental problems and is yet to see a dentist. Patient noticed bumps on her gums along with worsening pain 2 days ago. Patient denies any fevers, body aches, chills, nausea vomiting, difficulty swallowing, difficulty clearing secretions, pain or swelling under her tongue, breathing problems, or any other symptoms. Patient has not tried any [id number] help with symptoms. Related Data Allergies Allergy/AdvReac Type Severity Reaction Status Date / Time acetaminophen Allergy Unknown Rash Verified 08/06/25 09:58 amoxicillin (From Augmentin) Allergy Unknown Unknown Verified 08/06/25 09:58 azithromycin Allergy Unknown Rash Verified 08/06/25 09:58 clavulanic acid Allergy Unknown Rash Verified 08/06/25 09:58 dextromethorphan Allergy Unknown Rash Verified 08/06/25 09:58 doxylamine Allergy Unknown Rash Verified 08/06/25 09:58 ibuprofen Allergy Unknown Other Verified 08/06/25 09:58 metoclopramide Allergy Unknown Rash Verified 08/06/25 09:58 morphine Allergy Unknown Rash Verified 08/06/25 09:58 pseudoephedrine Allergy Unknown Rash Verified 08/06/25 09:58 Review of Systems Review of Systems: CONSTITUTIONAL: Denies fever, chills, or sweats. EYES: Denies visual changes, redness, or discharge. ENT: Denies rhinorrhea, congestion, sore throat, difficulty clearing secretions, dysphasia, or otalgia. MOUTH: Positive for dental pain and mouth sores. CARDIOVASCULAR: Denies chest pain, palpitations, or edema. RESPIRATORY: Denies cough or dyspnea. GASTROINTESTINAL: Denies abdominal pain, nausea, vomiting, or diarrhea. GENITOURINARY: Denies dysuria or hematuria. SKIN: Denies rash or itching. MUSCULOSKELETAL: Denies back pain, joint pain, or myalgia. NEUROLOGIC: Denies headache, numbness, or weakness. PSYCHIATRIC: Denies anxiety or depression. All other systems reviewed are negative, except as documented in HPI. PMFSH Past Medical History Medical History ADHD (attention deficit hyperactivity disorder) Anxiety Depression History of gastroesophageal reflux (GERD) Left elbow fracture delivery delivered Asthma Surgical History Surgical History History of endoscopy History of elbow surgery For surgery due to fractured that included the growth bone H/O section Family History Family History Father Asthma Grandparent Diabetes mellitus Social History Social History Smoking status: Current every day smoker Tobacco type: cigarettes Second hand tobacco smoke exposure: Yes Alcohol intake: never Substance use: current Substance use type: marijuana Living arrangements: with family Occupation/Education: occupation Gender identity (if verbalized by the patient): Female Comments At the time of my signature, I reviewed and agree with the nursing past medical, surgical, social, and family history. There is no relevant family history pertinent to the patient complaint. Exam Narrative: GENERAL: This is a well-nourished, well-developed adult, in no apparent distress. They are non ill-appearing, nontoxic appearing. HEAD: normocephalic, atraumatic. EYES: Sclera clear/white. Conjunctiva normal. Vision is grossly intact. Extraocular movements intact EARS: External ears normal,Hearing grossly intact. NOSE: External nose normal THROAT: Mucous membranes moist, posterior pharynx clear, without erythema or swelling. Uvula midline. OROPHARYNX: Gross tooth decay present. Missing teeth. Anterior gingiva leukoplakia with underlying erythema swelling, gross gingivitis present. Tongue midline. No pain or swelling under the tongue. Tongue is not coated. No other suspicious lesions or ulcerations and oropharynx. NECK: Neck supple, non-tender without lymphadenopathy, masses or thyromegaly. CARDIOVASCULAR: Regular rate and rhythm without murmurs, gallops, or rubs. RESPIRATORY: Clear to auscultation. Breath sounds equal bilaterally. No wheezes, rales, or rhonchi. SKIN: warm, Dry, intact with no suspicious lesions or rash, good texture and turgor. NEURO: awake, alert, and oriented to person, place and time. There were no obvious focal neurologic abnormalities. EXTREMITIES: No joint tenderness, effusion, or edema noted. Course Course Emergency Course: Portions of this record may have been created with voice recognition software Level of Care: Express Care Visit Vital Signs Vital signs: Vital Signs Temperature 97.8 F 08/06/25 09:53 Pulse Rate 68 08/06/25 09:53 Respiratory Rate 16 08/06/25 09:53 Blood Pressure 108/76 08/06/25 09:53 Pulse Oximetry 100 08/06/25 09:53 Oxygen Delivery Room Air 08/06/25 09:53 Temperature 97.8 F 08/06/25 09:53 Pulse Rate 68 08/06/25 09:53 Respiratory Rate 16 08/06/25 09:53 Blood Pressure 108/76 08/06/25 09:53 Pulse Oximetry 100 08/06/25 09:53 Oxygen Delivery Room Air 08/06/25 09:53 Reviewed MDM - Dental/Oral MDM Narrative Medical decision making narrative: Appears patient leukoplakia on her gingiva, underlying erythema and swelling. Gross tooth decay. No proliferative lesions. Is tender to palpate, likely a dental infection. Patient has allergy clavulanate acid from Augmentin however she tolerates penicillins without issues. Will Treat with penicillin, advised her of a close follow-up with a dentist to rule out any malignancies. Discussed physical exam findings. Advised supportive measures and signs/symptoms to go to the ER. Pt is appropriate for outpt treatment and f/u. Differential Diagnosis Differential diagnosis: Likely gingival abscess, dental caries, toothache, dental abscess and fracture of tooth Critical Care Time Critical Care Time Critical Care Time: No Discharge Plan Discharge Clinical Impression: Chronic dental infection Patient Disposition: Home Condition: Stable Instructions: Antibiotic Form, Dental Abscess (ED) Additional Instructions: Take the antibiotics as directed. [place] your teeth and floss at least 2 times a day. Follow-up with dentist next week. You may consider the [employer] as well. He developed worsening swelling, fevers, difficulty swallowing or breathing, difficulty opening her jaw, swelling under the tongue, or any other concerns please go to the ER immediately. Patient Language: Upper Sorbian Prescriptions: New penicillin V potassium 500 mg tablet 500 mg PO QID 7 Days Qty: 28 0RF Follow-up/Referrals: PHYSICIAN,ELECTORATE OFFICER [Primary Care Provider, Internal Medicine] Time of Disposition: 10:16
== END 2025-08-06 10:20 | disposition home or self-care (01) ==
DX: K04.7 Periapical abscess without sinus (principal); J45.909 Unspecified asthma, uncomplicated; K21.9 Gastro-esophageal reflux disease without esophagitis; F17.210 Nicotine dependence, cigarettes, uncomplicated
CPT/HCPCS: 99213; G0463